=== PATIENT | female | born 1940 | race Caucasian/White ===

== ENCOUNTER 2020-06-04 13:33 | Outpatient (CLI) | payer MEDICARE, OTHER, SELFPAY ==
--- NOTE | ~2020-06-04 | MM_ITS ---
EXAMINATION: MM screening maranda BI w gina HISTORY: Screening mammogram TECHNIQUE: Craniocaudal and mediolateral oblique 3-D tomosynthesis images were obtained and synthetic 2-D images were generated. Bilateral rotated lateral cc views. CAD analysis was submitted and interp reted. COMPARISON: 03/06/2019, 03/01/2018, 02/02/2017 bilateral digital screening mammogram examinations BREAST PARENCHYMAL COMPOSITION: The breasts are heterogeneously dense, which may obscure small masses . FINDINGS: There is no evidence of suspicious mass, calcification, or architectural distortion to sugg est malignancy in either breast. There has been no suspicious interval change. IMPRESSION: 1. No mammographic evidence of malignancy. 2. Recommend routine screening mammography in one year. BI-RADS Category 1: Negative Reviewed, dictated and finalized at location A.
== END 2020-06-04 13:34 | disposition home or self-care (01) ==
LOC: ANHIMG 13:36
PROVIDERS: PCP Family Medicine; Visit Provider Family Medicine
DX: Z12.31 Encounter for screening mammogram for malignant neoplasm of breast (principal)
CPT/HCPCS: 77063; 77067

== ENCOUNTER 2021-06-11 08:11 | Outpatient (CLI) | payer MEDICARE, OTHER, SELFPAY ==
--- NOTE | ~2021-06-11 | MM_ITS ---
EXAMINATION: MM screening maranda BI w gina HISTORY: Screening mammogram TECHNIQUE: Craniocaudal and mediolateral oblique 3-D tomosynthesis images were obtained and synthetic 2-D images were generated. CAD analysis was submitted and interpreted. COMPARISON: 06/04/2020, 03/06/2019, 03/01/2018 bilateral digital screening mammogram examinations BREAST PARENCHYMAL COMPOSITION: The breasts are heterogeneously dense, which may obscure small masses . FINDINGS: There is no evidence of suspicious mass, calcification, or architectural distortion to sugg est malignancy in either breast. There has been no suspicious interval change. IMPRESSION: 1. No mammographic evidence of malignancy. 2. Recommend routine screening mammography in one year. BI-RADS Category 1: Negative Reviewed, dictated and finalized at location A.
== END 2021-06-11 08:12 | disposition home or self-care (01) ==
LOC: ANHIMG 08:16
PROVIDERS: PCP Family Medicine; Visit Provider Family Medicine
DX: Z12.31 Encounter for screening mammogram for malignant neoplasm of breast (principal)
CPT/HCPCS: 77063; 77067

== ENCOUNTER 2023-05-21 12:56 | Emergency (ER) | payer MEDICARE, SELFPAY ==
[2023-05-21 14:10] VITALS: BP 151/65; PULSE 68; RESP 18; TEMP 36.5; O2SAT 98
--- NOTE | 2023-05-21 14:59 | ED.LOWEXIN ---
HPI - Extremity Injury (Lower) General Chief Complaint: Extremity Injury, Lower Stated Complaint: rt ankle pain Time Seen by Provider: 05/21/23 14:47 Source: patient and RN notes reviewed Mode of arrival: ambulatory Limitations: no limitations History of Present Illness HPI Narrative: Patient presents today complaining of right ankle pain x4 days. Denies any known injury or trauma. Patient does play golf, but did not injure herself. Pain increases with range of motion. Reports radiation of the pain upper leg at times, but this decreases with rest. She has tried ice and topical creams with mild relief. She is also wearing an ankle brace. Related Data Home Medications Medication Instructions Recorded Confirmed fexofenadine 180 mg tablet 180 mg PO DAILY 08/14/19 07/28/21 ([facility]) fluticasone propionate 50 2 spray intranasal DAILY 08/14/19 07/28/21 mcg/actuation nasal spray,suspension (Flonase Allergy Relief) aspirin 81 mg tablet,delayed 81 mg PO DAILY 10/15/19 07/28/21 release Allergies Allergy/AdvReac Type Severity Reaction Status Date / Time enalapril Allergy Unknown cough Verified 07/28/21 13:18 erythromycin base Allergy Unknown Nausea Verified 07/28/21 13:18 labetalol Allergy Unknown Malaise Verified 07/28/21 13:18 naproxen Allergy Unknown Skin Verified 07/28/21 13:18 Reaction piroxicam Allergy Unknown HIVES Verified 07/28/21 13:18 piperacillin [From Zosyn] Allergy hives Verified 07/28/21 13:18 tazobactam [From Zosyn] Allergy hives Verified 07/28/21 13:18 lactose AdvReac Intermediate Unknown Verified 07/28/21 13:18 sulfamethoxazole AdvReac Intermediate upset Verified 07/28/21 14:04 [From Bactrim] stomach trimethoprim [From Bactrim] AdvReac Intermediate upset Verified 07/28/21 14:04 stomach Review of Systems Review of Systems: CONSTITUTIONAL: Denies body aches, fever, chills, or sweats. EYES: Denies visual changes, redness, or discharge. ENT: Denies rhinorrhea, congestion, sore throat, or otalgia. CARDIOVASCULAR: Denies chest pain, palpitations, or edema. RESPIRATORY: Denies cough or dyspnea. GASTROINTESTINAL: Denies abdominal pain, nausea, vomiting, or diarrhea. GENITOURINARY: Denies dysuria or hematuria. SKIN: Denies rash, itching, or wounds. MUSCULOSKELETAL: Denies back pain, or myalgia.+ right ankle pain NEUROLOGIC: Denies headache, numbness, tingling, or weakness. PSYCH: Denies depression or anxiety. PMFSH Past Medical History Medical History Thyroid nodule 12-18 aspiration of nodule Surgical History Surgical History H/O arthroscopy of knee July 2019 right Oct, 2019 left H/O cataract extraction H/O hemorrhoidectomy History of bunionectomy History of knee replacement July 2019 right Oct, 2019 left History of meniscectomy of left knee Family History Family History Mother Hypertension Father Cerebrovascular accident Malignant neoplasm of prostate Family history of coronary artery disease Other Family history of cardiovascular disease Social History Social History Alcohol intake: current Comments At time of signature, I have reviewed and agree with nursing past medical, surgical, social and family history unless otherwise noted. Please see nursing chart for further information. There is no relevant family history pertinent to the presenting complaint Exam Narrative: GENERAL: Well-appearing, well-nourished, and in no acute distress. HEAD: Normocephalic, atraumatic. EYES: EOMI. No redness or drainage. Conjunctivae normal. ENT: Mucous membranes pink and moist. NECK: Normal AROM. CHEST: No respiratory distress. EXTREMITIES: Right ankle: Tenderness and localized edema to the
== END 2023-05-21 15:17 | disposition home or self-care (01) ==
PROVIDERS: Emergency Provider Nurse Practitioner; PCP Hospitalist
DX: S93.401A Sprain of unspecified ligament of right ankle, initial encounter (principal); X58.XXXA Exposure to other specified factors, initial encounter; Z96.653 Presence of artificial knee joint, bilateral; Z79.82 Long term (current) use of aspirin
CPT/HCPCS: 73610; 99213; G0463